=== PATIENT | female | born 1955 ===

== ENCOUNTER 2022-03-17 10:31 | Outpatient (CLI) | payer OTHER ==
[~2022-03-17 10:31] MED LIST: CATAFLAM50 MG PO
== END 2022-03-17 10:46 | disposition home or self-care (01) ==
LOC: RAD 10:31
PROVIDERS: ATTEND Surgery
DX: I10 Essential (primary) hypertension (principal)

== ENCOUNTER → 2022-03-21 | Day surgery (SDC) | payer OTHER ==
[~2022-03-21] MED LIST changes: +AMITRIPTYLINE; +ANASTROZOLE1 MG PO; +RESTORIL30 M1 PO; +SYNTHROID88 MCG PO
== END | disposition home or self-care (01) ==
LOC: ADM 03-19 15:15 → CIR.AMB 06:00
PROVIDERS: ATTEND Surgery
DX: C50.912 Malignant neoplasm of unspecified site of left female breast (principal); R59.0 Localized enlarged lymph nodes; N60.92 Unspecified benign mammary dysplasia of left breast; E03.9 Hypothyroidism, unspecified
CPT/HCPCS: 19301; 38525; 19281; L8699; A9541